=== PATIENT | female | born 1975 | race Caucasian/White ===

== ENCOUNTER → 2024-07-16 08:55 | Outpatient (REF) | payer OTHER, SELFPAY | LOC: WDC 08:55 | PROVIDERS: ATTENDING PHYSICIAN Obstetrics & Gynecology Gynecology | DX: Z12.31 Encounter for screening mammogram for malignant neoplasm of breast (principal) | CPT/HCPCS: 77063; 77067 ==

== ENCOUNTER → 2024-09-09 09:03 | Outpatient (REF) | payer OTHER, SELFPAY | LOC: RAD 09:03 | PROVIDERS: ATTENDING PHYSICIAN Obstetrics & Gynecology Gynecology; FAMILY PHYSICIAN Internal Medicine | DX: N83.209 Unspecified ovarian cyst, unspecified side (principal) | CPT/HCPCS: 76830; 76856 ==

== ENCOUNTER 2025-02-14 09:39 | Emergency (ER) | payer OTHER, SELFPAY ==
[2025-02-14 09:41] VITALS: BP 139/78
--- NOTE | 2025-02-14 09:51 | ED.MUSCINJ ---
HPI-Injury
General
Chief Complaint: Musculo-Skeletal Complaint
Source: patient
Exam Limitations: none
Time Seen by Provider: 02/14/25 09:47
History of Present Illness-Injury
Initial Injury comments:
49-year-old female presents complaining of pain and swelling to the right ankle starting yesterday. She jumped during pickleball and landed and twisted her ankle. She now notes swelling and bruising. She notes some difficulty bearing weight. No
prior injury to the ankle. She took 2 Advil this morning. No other complaints at this time
Phy Exam
Physical Exam
Physical Exam:
General: Well-appearing female no respiratory distress
Musculoskeletal exam: Right ankle swollen ecchymotic and tender anterior laterally as well as slightly medially. No deformities. Able to resist eversion and inversion. The ankle stable to drawer test. The bernard and the rest of the knee are
nontender there is a 2+ DP pulse to the right foot
Injury Course
Orders/Labs/Results
Orders:
Orders
02/14/25 09:50
CR Ankle - Right Min 3 Views * Urgent
Comment:
Reason For Exam: pain, swelling
MDM/Problems Addressed
Differential Diagnosis Includes:
Right ankle pain and swelling after twisting injury. Consider sprain versus fracture versus dislocation. X-rays pending
*Pulse Oximetry
SaO2: 99
Oxygen Mode of Delivery: Room air
Patient hypoxic: no
*Critical Care Note
Total Time (30-74mins, 75-104mins- exclusive of procedures): Not Applicable
Update Note
Update Note:
X-rays negative for acute fracture. There is calcification inferior to the distal fibula looks chronic. Patient is having some trouble bearing weight we will place an orthopedic boot and treat for ankle sprain.
ED Attending Note
-
Portions of this chart may have been created with voice recognition software.� Occasional wrong word or��sound alike� substitutions may have occurred due to the inherent limitations of voice recognition software.
Discharge Plan
Departure
Patient Disposition: Home (Routine Discharge)
Date of Disposition: 02/14/25
Time of Disposition: 10:49
Patient with high blood pressure during this ER visit?: No
Discharge Problem:
Ankle sprain
Instructions: Muscle and Bone Pain (DC)
Prescriptions:
No Action
Vitamins
Referrals:
Bethany العراقي MD [Family Provider, Internal Medicine]
Activity Restrictions/Additional Instructions:
Continue with Advil for pain. Elevate for swelling. Use boot for support and ambulating. Return if worse otherwise follow-up with your doctor
Interventions
Interventions:
*Risk Screen - Suicide Last Done: 02/14/25 09:41
*General Assessment Last Done: 02/14/25 09:41
*Neglect/Abuse Screening Last Done: 02/14/25 09:41
*ED- Fall Risk Assessment Last Done: 02/14/25 10:08
*ED COVID-19 Vaccine History Last Done: 02/14/25 10:08
ED-Musculoskeletal Assessment Last Done: 02/14/25 10:07
Discharge Date and Time
Print Language: GEORGIAN
== END 2025-02-14 10:57 | disposition home or self-care (01) ==
LOC: EMR 09:39
PROVIDERS: EMERGENCY PHYSICIAN Emergency Medicine; FAMILY PHYSICIAN Internal Medicine
DX: S93.401A Sprain of unspecified ligament of right ankle, initial encounter (principal); X50.1XXA Overexertion from prolonged static or awkward postures, initial encounter
CPT/HCPCS: 99283; 73610

== ENCOUNTER → 2025-03-22 07:25 | Outpatient (REF) | payer OTHER, SELFPAY | LOC: MRI 3T 07:25 | PROVIDERS: ATTENDING PHYSICIAN Student in an Organized Health Care Education/Training Program; FAMILY PHYSICIAN Internal Medicine | DX: M25.571 Pain in right ankle and joints of right foot (principal) | CPT/HCPCS: 73721 ==